=== PATIENT | female | born 1965 | race American Indian/Alaskan Native ===

== ENCOUNTER 2017-06-17 16:24 | Emergency (ER) | payer BC ==
[2017-06-17 16:52] VITALS: BP 153/99
--- NOTE | 2017-06-17 18:29 | Emergency Department Report ---
HPI - General Chief Complaint: Medical Clearance Time Seen by Provider: 06/17/17 18:27 - HPI HPI: Patient stated blood glucose was 600 at at work this morning, about 11 she took 40 units of Humalog unknown what type of Humalog. Her symptoms gradually resolved she had headache, blurry vision dizziness. She now feels better, but feels like her glucose is dropping since she hasn't eaten anything in about 4 hours. Patient also complained of sore throat for the past week. Difficulty swallowing. No wheezing, chest pain or shortness of breath. ED Past Medical Hx - Past Medical History Previous Medical History?: Yes Hx Hypertension: Yes Hx Diabetes: Yes Additional medical history: PE (still takes Coumadin) - Surgical History Past Surgical History?: No - Medications Home Medications: Home Medications Medication Instructions Recorded Confirmed Last Taken Type Azithromycin [Zithromax] 250 mg PO DAILY 5 Days #6 tablet 06/17/17 Unknown Rx ED Review of Systems ROS: Stated complaint: ELEVATED BP AND GLUCOSE Other details as noted in HPI Comment: All other systems reviewed and negative Cardiovascular: as per HPI Endocrine: increased thirst Physical Exam - Physical Exam Vital Signs: Vital Signs 06/17/17 16:45 Temperature 98.4 F Pulse Rate 90 Respiratory 16 Rate Blood Pressure 153/99 O2 Sat by Pulse 99 Oximetry Physical Exam: Gen. alert and oriented 3 in no distress Head atraumatic normocephalic Eyes PERR LA EOMI, throat: has pharyngeal erythema Chest regular rate and rhythm normal S1-S2 lungs clear bilaterally Abdomen soft nondistended Back no point tenderness paravertebral tenderness Neuro no focal deficit. Psych normal mood. ED Course Vital Signs 06/17/17 16:45 Temperature 98.4 F Pulse Rate 90 Respiratory 16 Rate Blood Pressure 153/99 O2 Sat by Pulse 99 Oximetry Critical care attestation.: If time is entered above; I have spent that time in minutes in the direct care of this critically ill patient, excluding procedure time. ED Disposition Clinical Impression: Hyperglycemia, Pharyngitis Disposition: DC-01 TO HOME OR SELFCARE Is pt being admited?: No Does the pt Need Aspirin: No Condition: Stable Instructions: Pharyngitis (ED), Diabetic Hyperglycemia (ED) Prescriptions: Azithromycin [Zithromax] 250 mg PO DAILY 5 Days #6 tablet Referrals: PRIMARY CARE, [Primary Care Provider] - 3-5 Days Forms: Work/School Release Form(ED)
== END 2017-06-17 18:37 | disposition home or self-care (01) ==
LOC: ED 16:24
DX: E11.65 Type 2 diabetes mellitus with hyperglycemia (principal); J02.9 Acute pharyngitis, unspecified; I10 Essential (primary) hypertension; Z86.711 Personal history of pulmonary embolism; Z79.01 Long term (current) use of anticoagulants
CPT/HCPCS: 82962

== ENCOUNTER 2017-06-18 14:18 | Inpatient (IN) | payer BC ==
--- NOTE | 2017-06-18 15:14 | Emergency Department Report ---
Tanisha Doc - Documentation Documentation: Vision is a 52-year-old asthmatic female who is presenting with difficulty speaking earlier this morning. Patient's states she was here yesterday and diagnosed with pharyngitis and she was having some difficulty swallowing her blood glucose and blood pressure above elevated yesterday. Patient states this morning she has started taking her antibiotics he was trying to clean up her home and acutely started having difficulty getting out words weakness in bilateral legs. The patient states her sister was asking while she was talking funny and her brother thought her right side of her face was drooped. Patient be moved to the main for a workup for TIA/stroke. NIH is below. - Assessment Assessment Interval: Baseline - Level of Consciousness 1a. Level of Consciousness: alert - LOC Questions 1b. LOC Questions: answers correctly - LOC Command 1c. LOC Commands: performs tasks correctly - Best Gaze 2. Best Gaze: normal - Visual 3. Visual: no visual loss - Facial Palsy 4. Facial Palsy: normal symmetrical movement - Motor Arm 5b. Motor Arm Right: no drift 5a. Motor Arm Left: no drift - Motor Leg 6a. Motor Leg Left: no drift 6b. Motor Leg Right: no drift - Limb Ataxia 7. Limb Ataxia: absent - Sensory 8. Sensory: normal - Best Language 9. Best Language: no aphasia - Dysarthria 10. Dysarthria: normal - Extinction and Inattention 11. Extinction/Inattention: no abnormality - Scoring Total Score: 0 Stroke Severity: No Stroke Symptoms
--- NOTE | 2017-06-18 15:59 | Cat Scan Report ---
FINAL REPORT EXAM: CT HEAD/BRAIN WO CON HISTORY: suspected TIA TECHNIQUE: CT examination of the head without IV contrast PRIORS: None. FINDINGS: No acute air-fluid level visualized in the included air-filled sinuses. Bone windows demonstrate no acute fracture. The brain is without mass, mass effect, hemorrhage, or acute infarct. There is no extra-axial intracranial bleed, brain bleed, or midline shift. The ventricles and sulci are age-appropriate. IMPRESSION: No acute CVA, intracranial bleed, or brain mass
[2017-06-18 17:29] LABS: Basophils # (Auto) 0.1 K/mm3 (0.0-0.1); Basophils % (Auto) 1.2 % (0.0-1.8); Eosinophils # (Auto) 0.2 K/mm3 (0.0-0.4); Eosinophils % (Auto) 2.3 % (0.0-4.3); Hematocrit 41.3 % (30.3-42.9); Hemoglobin 14.2 gm/dl (10.1-14.3); Lymphocytes # (Auto) 3.6 K/mm3 (1.2-5.4); Lymphocytes % (Auto) 41.7 % (13.4-35.0); Mean Corpuscular HGB Conc 34 % (30-34); Mean Corpuscular Hemoglobin 29 pg (28-32); Mean Corpuscular Volume 84 fl (79-97); Monocytes # (Auto) 0.5 K/mm3 (0.0-0.8); Platelet Count 335 K/mm3 (140-440); Red Blood Count 4.93 M/mm3 (3.65-5.03); Red Cell Distribution Width 13.2 % (13.2-15.2)
[2017-06-18 17:39] LABS: INR 0.88 (0.87-1.13); Partial Thromboplastin Time 24.1 Sec. (24.2-36.6)
[2017-06-18 17:40] LABS: Thrombin Time 17.3 Sec. (15.1-19.6)
[2017-06-18 17:55] LABS: Alanine Aminotransferase 24 units/L (7-56); BUN/Creatinine Ratio 25; Blood Urea Nitrogen 30 mg/dL (7-17); Hemolysis Index 7
[2017-06-18 17:57] LABS: Creatine Kinase MB 1.5 ng/mL (0.0-4.0)
[2017-06-18] MEDS ORDERED: ASPIRIN PO ONE (18:03)
--- NOTE | 2017-06-18 18:03 | Emergency Department Report ---
ED General Adult HPI - General Chief complaint: Dyspnea/Respdistress Stated complaint: DIFFICULTY SPEAKING Time Seen by Provider: 06/18/17 15:00 Source: patient Mode of arrival: Ambulatory Limitations: No Limitations - History of Present Illness Initial comments: Patient is a 52-year-old female past medical history of hypertension diabetes who is presenting with difficulty speaking this morning. Patient states that she was diagnosed with pharyngitis as she was having difficulty swallowing yesterday states that this morning she had a hard time formulating words and speaking her brother stated that she had a facial droop and her sister was asking why she was sounding slurred. This lasted approximately 15 minutes and then started to resolve. Patient states she is back to baseline now but was pretty concerned. Patient is denying any other symptoms. Patient denies chest pain shortness of breath fevers chills headache at this time. - Related Data Previous Rx's Medication Instructions Recorded Last Taken Type Azithromycin [Zithromax] 250 mg PO DAILY 5 Days #6 tablet 06/17/17 Unknown Rx Allergies Allergy/AdvReac Type Severity Reaction Status Date / Time No Known Allergies Allergy Unverified 06/17/17 16:49 ED Review of Systems ROS: Stated complaint: DIFFICULTY SPEAKING Other details as noted in HPI Comment: All other systems reviewed and negative ED Past Medical Hx - Past Medical History Hx Hypertension: Yes Hx Diabetes: Yes Additional medical history: PE (still takes Coumadin) - Surgical History Past Surgical History?: No - Social History Smoking Status: Former Smoker Substance Use Type: None - Medications Home Medications: Home Medications Medication Instructions Recorded Confirmed Last Taken Type Azithromycin [Zithromax] 250 mg PO DAILY 5 Days #6 tablet 06/17/17 Unknown Rx ED Physical Exam - General Limitations: No Limitations General appearance: alert, in no apparent distress - Head Head exam: Present: atraumatic, normocephalic - Eye Eye exam: Present: normal appearance - ENT ENT exam: Present: mucous membranes moist - Neck Neck exam: Present: normal inspection - Respiratory Respiratory exam: Present: normal lung sounds bilaterally. Absent: respiratory distress - Cardiovascular Cardiovascular Exam: Present: regular rate, normal rhythm. Absent: systolic murmur, diastolic murmur, rubs, gallop - GI/Abdominal GI/Abdominal exam: Present: soft, normal bowel sounds - Extremities Exam Extremities exam: Present: normal inspection - Back Exam Back exam: Present: normal inspection - Neurological Exam Neurological exam: Present: alert, oriented X3 - Psychiatric Psychiatric exam: Present: normal affect, normal mood - Skin Skin exam: Present: warm, dry, intact, normal color. Absent: rash ED Course Vital Signs 06/18/17 14:22 Temperature 98.1 F Pulse Rate 100 H Respiratory 16 Rate Blood Pressure 140/91 O2 Sat by Pulse 99 Oximetry ED Medical Decision Making - Lab Data Result diagrams: 06/18/17 17:23 06/18/17 17:23 - Radiology Data Radiology results: report reviewed No acute process - Medical Decision Making Patient will be admitted to Dr. Christie with the hospitalist service for continued care. Patient will be worked up for TIA. Please see NIH scale score on the blanket during my screening Critical care attestation.: If time is entered above; I have spent that time in minutes in the direct care of this critically ill patient, excluding procedure time. ED Disposition Clinical Impression: TIA (transient ischemic attack) Disposition: DC-09 OP ADMIT IP TO THIS HOSP Is pt being admited?: Yes Does the pt Need Aspirin: No Condition: Stable Referrals: PRIMARY CARE, [Primary Care Provider] - 3-5 Days
--- NOTE | 2017-06-18 18:19 | History and Physical Report ---
History of Present Illness Chief complaint: I could not talk, and my face was twisted History of present illness: 52 YO Female with HTN, DM, History of PE presents to ED for evaluation. Pt states that she was in her usual state of health at bedtime last night which was around 2100 hrs, but awoke this morning and experienced difficulty speaking , and also had a hard time formulating words and speaking full sentences. Patient brother stated that she had a facial droop. Pt states that symptoms improved after 15 minutes. Pt denies fever, chills, CP, Palpitations, Syncope, shortness of breath, productive cough, BRBPR, Vertigo, Seizures, loss of bowel/ bladder continence, trauma, or recent ill contacts. Pt seen and evaluated in ED and found to be outside therapeutic window for TPA. Pt admitted to telemetry and treated IA stroke protocol. Past History Past Medical History: diabetes, hypertension, pulmonary embolism Past Surgical History: No surgical history, Other (reviewed) Social history: , lives with family. denies: smoking, alcohol abuse, prescription drug abuse Family history: hypertension Medications and Allergies Allergies Allergy/AdvReac Type Severity Reaction Status Date / Time No Known Allergies Allergy Unverified 06/17/17 16:49 Home Medications Medication Instructions Recorded Confirmed Last Taken Type Azithromycin [Zithromax] 250 mg PO DAILY 5 Days #6 tablet 06/17/17 06/18/17 Rx Liraglutide [Victoza 2-Bladimir] 0.6 mg SQ DAILY 06/18/17 06/18/17 Unknown History Lisinopril [Prinivil] 5 mg PO DAILY 06/18/17 06/18/17 Unknown History Metoprolol Succinate 50 mg PO DAILY 06/18/17 06/18/17 Unknown History NIFEdipine [Nifedipine ER] 60 mg PO QPM 06/18/17 06/18/17 Unknown History Valsartan/Hydrochlorothiazide 1 each PO BID 06/18/17 06/18/17 Unknown History [Valsartan-Hctz 160-12.5 mg Tab] Warfarin [Coumadin] 10 mg PO QHS 06/18/17 06/18/17 Unknown History glipiZIDE [Glipizide] 10 mg PO BID 06/18/17 06/18/17 Unknown History Review of Systems Constitutional: no weight loss, no weight gain, no fever, no chills Ears, nose, mouth and throat: no ear pain, no ear discharge, no tinnitis, no decreased hearing, no nose pain Breasts: no change in shape, no swelling, no mass Cardiovascular: no chest pain, no orthopnea, no palpitations, no rapid/ irregular heart beat, no edema, no syncope Respiratory: no cough, no cough with sputum, no excessive sputum, no hemoptysis , no shortness of breath Gastrointestinal: no nausea, no vomiting, no diarrhea Genitourinary Female: no dysmenorrhea, no pelvic pain, no flank pain, no menorrhagia, no dysuria Musculoskeletal: no neck stiffness, no neck pain, no shooting arm pain, no arm numbness/tingling, no low back pain Integumentary: no rash, no pruritis, no redness, no sores, no wounds, no jaundice Neurological: weakness, change in speech, no tingling, no seizures, no syncope, no tremors Psychiatric: no anxiety, no memory loss, no change in sleep habits, no sleep disturbances, no insomnia, no hypersomnia, no change in appetite Endocrine: no cold intolerance, no heat intolerance, no polyphagia, no excessive thirst, no polydipsia, no polyuria, no nocturia Hematologic/Lymphatic: no easy bruising, no easy bleeding, no lymphadenopathy, no lymphedema Allergic/Immunologic: no urticaria, no allergic rhinitis, no wheezing, no persistent infections, no anaphylaxis Exam - Constitutional Vitals: Temp Pulse Resp BP Pulse Ox 98.1 F 100 H 16 140/91 99 06/18/17 14:22 06/18/17 14:22 06/18/17 14:22 06/18/17 14:22 06/18/17 14:22 General appearance: Present: no acute distress - EENT Eyes: Present: PERRL ENT: hearing intact, clear oral mucosa - Neck Neck: Present: supple, normal ROM - Respiratory Respiratory effort: normal Respiratory: bilateral: CTA - Cardiovascular Heart Sounds: Present: S1 & S2. Absent: rub, click - Extremities Extremities: pulses symmetrical, No edema Peripheral Pulses: within normal limits - Abdominal General gastrointestinal: Present: soft, non-tender, non-distended, normal bowel sounds Female genitourinary: Present: normal - Integumentary Integumentary: Present: clear, warm, dry - Musculoskeletal Musculoskeletal: gait normal, strength equal bilaterally - Psychiatric Psychiatric: appropriate mood/affect, intact judgment & insight - Neurologic Neurologic: CNII-XII intact, moves all extremities Results - Labs CBC & Chem 7: 06/18/17 17:23 06/18/17 17:23 Labs: Abnormal lab results 06/18/17 06/18/17 06/18/17 Range/Units 14:29 17:23 17:23 Lymph % (Auto) 41.7 H (13.4-35.0) % APTT 24.1 L (24.2-36.6) Sec. BUN (7-17) mg/dL POC Glucose 116 H (70-105) Alkaline Phosphatase (35-129) units/L 06/18/17 Range/Units 17:23 Lymph % (Auto) (13.4-35.0) % APTT (24.2-36.6) Sec. BUN 30 H (7-17) mg/dL POC Glucose (70-105) Alkaline Phosphatase 132 H (35-129) units/L Assessment and Plan - Patient Problems (1) CVA (cerebral vascular accident) Current Visit: Yes Status: Suspected Qualifiers: CVA mechanism: unspecified Qualified Code(s): I63.9 - Cerebral infarction, unspecified Plan to address problem: Stroke Protocol: CT head, MRI Brain, MRA Brain, Echo, Carotid Doppler, PT/PT/ speech Therapy, antiplatelet therapy (2) Diabetes Current Visit: Yes Status: Acute Plan to address problem: ADA diet, insulin, accu check (3) HTN (hypertension) Current Visit: Yes Status: Acute Qualifiers: Hypertension type: essential hypertension Qualified Code(s): I10 - Essential (primary) hypertension Plan to address problem: monitor bp q shift. (4) Pulmonary embolism Current Visit: Yes Status: Acute Qualifiers: Chronicity: chronic Plan to address problem: Resume home anticoagulation, therapeutic lovenox until INR therapeutic. (5) DVT prophylaxis Current Visit: Yes Status: Acute
[2017-06-18] MEDS ORDERED: SODIUM CHLORIDE FLUSH SYRINGE 10 ML IV PRN (18:20)
[2017-06-18] MEDS ORDERED: ZOFRAN IV PRN (18:20)
[2017-06-18] MEDS ORDERED: PROVENTIL IH PRN (18:20)
[2017-06-18 19:01] LABS: Amphetamine Screen,Urine PRESUMPTIVE NEGATIVE; Benzodiazepines Screen,Urine PRESUMPTIVE NEGATIVE; Cannabinoid Screen,Urine PRESUMPTIVE NEGATIVE; Cocaine Screen,Urine PRESUMPTIVE NEGATIVE; Methadone Screen,Urine PRESUMPTIVE NEGATIVE; Opiate Screen,Urine PRESUMPTIVE NEGATIVE
[2017-06-18] MEDS ORDERED: LOVENOX SUB-Q ONE (21:43)
[2017-06-18] MEDS ORDERED: COUMADIN PO SCH (22:00)
[2017-06-18] MEDS ORDERED: LOVENOX SUB-Q SCH (22:00)
[2017-06-18] MEDS: COUMADIN PO SCH ×2 (22:50)
[2017-06-18] MEDS: LOVENOX SUB-Q SCH (22:50)
[2017-06-19 06:36] LABS: Chol/HDL Ratio 7.83 %; HDL Cholesterol 31 mg/dL (40-59); LDL Cholesterol,Direct TNR mg/dL (50-130)
[2017-06-19 07:10] LABS: INR 0.98 (0.87-1.13)
--- NOTE | 2017-06-19 09:38 | Progress Note ---
<DINO FENG - Last Filed: 06/19/17 15:18> Assessment and Plan Assessment and plan: 52 YO Female with HTN, DM, History of PE presents to ED for evaluation. Pt states that she was in her usual state of health at bedtime last night which was around 2100 hrs, but awoke this morning and experienced difficulty speaking , and also had a hard time formulating words and speaking full sentences. Patient brother stated that she had a facial droop. Pt states that symptoms improved after 15 minutes. Pt denies fever, chills, CP, Palpitations, Syncope, shortness of breath, productive cough, BRBPR, Vertigo, Seizures, loss of bowel/ bladder continence, trauma, or recent ill contacts. Pt seen and evaluated in ED and found to be outside therapeutic window for TPA. Pt admitted to telemetry and treated IAW stroke protocol. CVA (cerebral vascular accident) MRI Brain, MRA Brain, Echo, Carotid Doppler, PT/OT/ speech Therapy, antiplatelet therapy CT head No acute CVA, intracranial bleed, or brain mass Neurology consult ordered Diabetes ADA diet, SSI insulin, accu check ACHS HTN (hypertension) monitor bp frequently Pulmonary embolism Resume home anticoagulation, therapeutic lovenox until INR therapeutic. Hyperlipidemia Initiate statin therapy DVT prophylaxis Lovenox History Interval history: Patient seen and examined. No new events overnight. Labs and nursing notes reviewed Hospitalist Physical - Constitutional Vitals: Temp Pulse Resp BP Pulse Ox 98.3 F 90 20 137/84 99 06/19/17 08:16 06/19/17 08:16 06/19/17 08:16 06/19/17 08:16 06/19/17 08:16 General appearance: Present: no acute distress, well-nourished - EENT Eyes: Present: PERRL, EOM intact ENT: hearing intact, clear oral mucosa - Neck Neck: Present: supple, normal ROM - Respiratory Respiratory effort: normal Respiratory: bilateral: CTA - Cardiovascular Rhythm: regular Heart Sounds: Present: S1 & S2 - Extremities Extremities: no ischemia, No edema - Abdominal General gastrointestinal: soft, non-tender, non-distended - Integumentary Integumentary: Present: clear, warm, dry - Psychiatric Psychiatric: appropriate mood/affect, intact judgment & insight - Neurologic Neurologic: CNII-XII intact, moves all extremities - Allied Health Allied health notes reviewed: nursing Results - Labs CBC & Chem 7: 06/18/17 17:23 06/18/17 17:23 Labs: Laboratory Last Values WBC 8.6 K/mm3 (4.5-11.0) 06/18/17 17: RBC 4.93 M/mm3 (3.65-5.03) 06/18/17 17:23 Hgb 14.2 gm/dl (10.1-14.3) 06/18/17 17: Hct 41.3 % (30.3-42.9) 06/18/17 17:23 MCV 84 fl (79-97) 06/18/17 17: MCH 29 pg (28-32) 06/18/17 17: MCHC 34 % (30-34) 06/18/17 17: RDW 13.2 % (13.2-15.2) 06/18/17 17: Plt Count 335 K/mm3 (140-440) 06/18/17 17:23 Lymph % (Auto) 41.7 % (13.4-35.0) H 06/18/17 17:23 Ashe % (Auto) 6.0 % (0.0-7.3) 06/18/17 17: Eos % (Auto) 2.3 % (0.0-4.3) 06/18/17 17: Baso % (Auto) 1.2 % (0.0-1.8) 06/18/17 17:23 Lymph # 3.6 K/mm3 (1.2-5.4) 06/18/17 17:23 Ashe # 0.5 K/mm3 (0.0-0.8) 06/18/17 17:23 Eos # 0.2 K/mm3 (0.0-0.4) 06/18/17 17: Baso # 0.1 K/mm3 (0.0-0.1) 06/18/17 17: Seg Neutrophils % 48.8 % (40.0-70.0) 06/18/17 17: Seg Neutrophils # 4.2 K/mm3 (1.8-7.7) 06/18/17 17: PT 13.5 Sec. (12.2-14.9) 06/19/17 05:44 INR 0.98 (0.87-1.13) 06/19/17 05:44 APTT 24.1 Sec. (24.2-36.6) L 06/18/17 17:23 Thrombin Time 17.3 Sec. (15.1-19.6) 06/18/17 17:23 Sodium 140 mmol/L (137-145) 06/18/17 17:23 Potassium 4.3 mmol/L (3.6-5.0) 06/18/17 17:23 Chloride 99.2 mmol/L (98-107) 06/18/17 17:23 Carbon Dioxide 27 mmol/L (22-30) 06/18/17 17:23 Anion Gap 18 mmol/L 06/18/17 17:23 BUN 30 mg/dL (7-17) H 06/18/17 17:23 Creatinine 1.2 mg/dL (0.7-1.2) 06/18/17 17:23 Estimated GFR 57 ml/min 06/18/17 17:23 BUN/Creatinine Ratio 25 % 06/18/17 17:23 Glucose 88 mg/dL (65-100) 06/18/17 17:23 POC Glucose 116 (70-105) H 06/18/17 14:29 Calcium 10.0 mg/dL (8.4-10.2) 06/18/17 17:23 Total Bilirubin < 0.20 mg/dL (0.1-1.2) 06/18/17 17:23 AST 19 units/L (5-40) 06/18/17 17:23 ALT 24 units/L (7-56) 06/18/17 17:23 Alkaline Phosphatase 132 units/L (35-129) H 06/18/17 17:23 Total Creatine Kinase 110 units/L (30-135) 06/18/17 17:23 CK-MB (CK-2) 1.5 ng/mL (0.0-4.0) 06/18/17 17:23 CK-MB (CK-2) Rel Index 1.3 (0-4) 06/18/17 17:23 Troponin T < 0.010 ng/mL (0.00-0.029) 06/18/17 17:23 Total Protein 7.9 g/dL (6.3-8.2) 06/18/17 17:23 Albumin 4.0 g/dL (3.9-5) 06/18/17 17:23 Albumin/Globulin Ratio 1.0 % 06/18/17 17:23 Triglycerides 602 mg/dL (2-149) H 06/19/17 05:44 Cholesterol 243 mg/dL (50-199) H 06/19/17 05:44 LDL Cholesterol Direct TNR 06/19/17 05:44 HDL Cholesterol 31 mg/dL (40-59) L 06/19/17 05:44 Cholesterol/HDL Ratio 7.83 % 06/19/17 05:44 Urine Opiates Screen Presumptive negative 06/18/17 18:45 Urine Methadone Screen Presumptive negative 06/18/17 18:45 Ur Barbiturates Screen Presumptive negative 06/18/17 18:45 Ur Phencyclidine Scrn Presumptive negative 06/18/17 18:45 Ur Amphetamines Screen Presumptive negative 06/18/17 18:45 U Benzodiazepines Scrn Presumptive negative 06/18/17 18:45 Urine Cocaine Screen Presumptive negative 06/18/17 18:45 U Marijuana (THC) Screen Presumptive negative 06/18/17 18:45 Drugs of Abuse Note Disclamer 06/18/17 18:45 <EDUARDO FERNANDEZ R - Last Filed: 06/19/17 16:05> Assessment and Plan Assessment and plan: I saw and evaluated the patient. I agree with the findings and the plan of care as documented in the Nurse Practitioner's~note, with the following corrections and additions. patient was not compliant with her coumadin. MRI showed rt pontine acute CVA. Add high intensity statin. Hospitalist Physical - Constitutional Vitals: Temp Pulse Resp BP Pulse Ox 97.2 F L 88 20 139/91 98 06/19/17 13:01 06/19/17 13:01 06/19/17 13:01 06/19/17 13:01 06/19/17 13:01 Results - Labs CBC & Chem 7: 06/18/17 17:23 06/18/17 17:23 Labs: Laboratory Last Values WBC 8.6 K/mm3 (4.5-11.0) 06/18/17 17: RBC 4.93 M/mm3 (3.65-5.03) 06/18/17 17:23 Hgb 14.2 gm/dl (10.1-14.3) 06/18/17 17: Hct 41.3 % (30.3-42.9) 06/18/17 17: MCV 84 fl (79-97) 06/18/17 17: MCH 29 pg (28-32) 06/18/17 17: MCHC 34 % (30-34) 06/18/17 17: RDW 13.2 % (13.2-15.2) 06/18/17 17: Plt Count 335 K/mm3 (140-440) 06/18/17 17: Lymph % (Auto) 41.7 % (13.4-35.0) H 06/18/17 17: Ashe % (Auto) 6.0 % (0.0-7.3) 06/18/17 17: Eos % (Auto) 2.3 % (0.0-4.3) 06/18/17 17: Baso % (Auto) 1.2 % (0.0-1.8) 06/18/17 17: Lymph # 3.6 K/mm3 (1.2-5.4) 06/18/17 17: Ashe # 0.5 K/mm3 (0.0-0.8) 06/18/17 17: Eos # 0.2 K/mm3 (0.0-0.4) 06/18/17 17: Baso # 0.1 K/mm3 (0.0-0.1) 06/18/17 17: Seg Neutrophils % 48.8 % (40.0-70.0) 06/18/17: Seg Neutrophils # 4.2 K/mm3 (1.8-7.7) 06/18/17 17: PT 13.5 Sec. (12.2-14.9) 06/19/17 05:44 INR 0.98 (0.87-1.13) 06/19/17 05:44 APTT 24.1 Sec. (24.2-36.6) L 06/18/17 17: Thrombin Time 17.3 Sec. (15.1-19.6) 06/18/17 17: Sodium 140 mmol/L (137-145) 06/18/17 17:23 Potassium 4.3 mmol/L (3.6-5.0) 06/18/17 17:23 Chloride 99.2 mmol/L (98-107) 06/18/17 17:23 Carbon Dioxide 27 mmol/L (22-30) 06/18/17 17:23 Anion Gap 18 mmol/L 06/18/17 17:23 BUN 30 mg/dL (7-17) H 06/18/17 17:23 Creatinine 1.2 mg/dL (0.7-1.2) 06/18/17 17:23 Estimated GFR 57 ml/min 06/18/17 17:23 BUN/Creatinine Ratio 25 % 06/18/17 17:23 Glucose 88 mg/dL (65-100) 06/18/17 17:23 POC Glucose 116 (70-105) H 06/18/17 14:29 Hemoglobin A1c 15.9 % (4-6) H 06/18/17 22:37 Calcium 10.0 mg/dL (8.4-10.2) 06/18/17 17:23 Total Bilirubin < 0.20 mg/dL (0.1-1.2) 06/18/17 17:23 AST 19 units/L (5-40) 06/18/17 17:23 ALT 24 units/L (7-56) 06/18/17 17:23 Alkaline Phosphatase 132 units/L (35-129) H 06/18/17 17:23 Total Creatine Kinase 110 units/L (30-135) 06/18/17 17:23 CK-MB (CK-2) 1.5 ng/mL (0.0-4.0) 06/18/17 17:23 CK-MB (CK-2) Rel Index 1.3 (0-4) 06/18/17 17:23 Troponin T < 0.010 ng/mL (0.00-0.029) 06/18/17 17:23 Total Protein 7.9 g/dL (6.3-8.2) 06/18/17 17:23 Albumin 4.0 g/dL (3.9-5) 06/18/17 17:23 Albumin/Globulin Ratio 1.0 % 06/18/17 17:23 Triglycerides 602 mg/dL (2-149) H 06/19/17 05:44 Cholesterol 243 mg/dL (50-199) H 06/19/17 05:44 LDL Cholesterol Direct TNR 06/19/17 05:44 HDL Cholesterol 31 mg/dL (40-59) L 06/19/17 05:44 Cholesterol/HDL Ratio 7.83 % 06/19/17 05:44 Vitamin B12 862.5 pg/mL (211-911) 06/19/17 12:53 TSH 1.030 mlU/mL (0.270-4.200) 06/19/17 12:53 Free T4 1.08 ng/dL (0.76-1.46) 06/19/17 12:53 Urine Opiates Screen Presumptive negative 06/18/17 18:45 Urine Methadone Screen Presumptive negative 06/18/17 18:45 Ur Barbiturates Screen Presumptive negative 06/18/17 18:45 Ur Phencyclidine Scrn Presumptive negative 06/18/17 18:45 Ur Amphetamines Screen Presumptive negative 06/18/17 18:45 U Benzodiazepines Scrn Presumptive negative 06/18/17 18:45 Urine Cocaine Screen Presumptive negative 06/18/17 18:45 U Marijuana (THC) Screen Presumptive negative 06/18/17 18:45 Drugs of Abuse Note Disclamer 06/18/17 18:45
[2017-06-19] MEDS ORDERED: D50W (25GM) Syringe IV PRN (09:42)
--- NOTE | 2017-06-19 11:13 | Magnetic Resonance Report ---
MRI BRAIN WITHOUT CONTRAST INDICATION: Stroke. COMPARISON: Head CT from yesterday. FINDINGS: Noncontrast multiplanar and multisequence MRI of the brain demonstrates approximately 8mm restricted diffusion focus in the chace inferiorly on the right, series 4, image 13. Questionable subtle PRES-like appearance on the diffusion though not confirmed on the FLAIR or T2-weighted imaging. Approximately 5 mm nonspecific FLAIR and T2 hyperintense right paramidline focus possibly along the superior frontal gyrus, axial image 21, series 7. Otherwise normal symmetric ventricles and sulci without acute hemorrhage, mass effect or midline shift. No abnormal extra axial masses or fluid collections. Normal major intracranial vascular flow voids. Normal remainder posterior fossa with preserved basilar cisterns and symmetric seventh and eighth nerve complexes. Normal eye globes. Clear paranasal sinuses and mastoid air cells. Normal midline structures without evidence of Chiari malformation. CONCLUSION: Approximately 8 mm nonhemorrhagic right pontine acute infarct, as described. Please correlate. Thank you for the opportunity to participate in this patient's care.
--- NOTE | 2017-06-19 11:17 | Magnetic Resonance Report ---
MRA HEAD WITHOUT CONTRAST INDICATION: Stroke. COMPARISON: None similar. FINDINGS: MRA of the head performed without intravenous contrast and demonstrates no evidence of flow-limiting stenosis, occlusion or vascular malformation. Please note that detection of aneurysms less than 5 mm is limited on this exam. 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 A small right PCOM identified while the left PCOM not clearly visualized. CONCLUSION: Normal study of the [place]. Thank you for the opportunity to participate in this patient's care.
[2017-06-19] MEDS ORDERED: NOVOLOG SUB-Q SCH (11:30)
[2017-06-19] MEDS: LOVENOX SUB-Q SCH ×2 (13:30→22:14)
[2017-06-19] MEDS: NOVOLOG SUB-Q SCH ×3 (13:31→22:15)
--- NOTE | 2017-06-19 14:05 | Consultation ---
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 The symptoms improved, but have not totally resolved. She noted these symptoms while trying to clean her house yesterday evening. Her sister noted the change in speech and facial droop. She denied chest pain, palpitations, diaphoresis, nausea, diplopia, headache. She did note occipital discomfort and also extreme sweating the night before which is different for her. She notes difficulty keeping up with all of her medicines, as well as her diabetic care. MRI scan reveals acute stroke in rt. chace. Echocardiogram shows EF of 55 to 60% Past History Past Medical History: diabetes, hypertension, pulmonary embolism Past Surgical History: No surgical history Social history: , lives with family. denies: smoking, alcohol abuse, prescription drug abuse Family history: diabetes (parents had hypertension, one sister with diabetes and hypertension, son with juvenile RA.), hypertension Medications and Allergies Allergies Allergy/AdvReac Type Severity Reaction Status Date / Time No Known Allergies Allergy Unverified 06/17/17 16:49 Home Medications Medication Instructions Recorded Confirmed Last Taken Type Azithromycin [Zithromax] 250 mg PO DAILY 5 Days #6 tablet 06/17/17 06/18/17 Rx Liraglutide [Victoza 2-Bladimir] 0.6 mg SQ DAILY 06/18/17 06/18/17 Unknown History Lisinopril [Prinivil] 5 mg PO DAILY 06/18/17 06/18/17 Unknown History Metoprolol Succinate 50 mg PO DAILY 06/18/17 06/18/17 Unknown History NIFEdipine [Nifedipine ER] 60 mg PO QPM 06/18/17 06/18/17 Unknown History Valsartan/Hydrochlorothiazide 1 each PO BID 06/18/17 06/18/17 Unknown History [Valsartan-Hctz 160-12.5 mg Tab] Warfarin [Coumadin] 10 mg PO QHS 06/18/17 06/18/17 Unknown History glipiZIDE [Glipizide] 10 mg PO BID 06/18/17 06/18/17 Unknown History Active Meds: Active Medications Acetaminophen (Tylenol) 650 mg PO Q4H PRN PRN Reason: Pain, Mild (1-3) Albuterol (Proventil) 2.5 mg IH Q3HRT PRN PRN Reason: Shortness Of Breath Dextrose (D50w (25gm) Syringe) 50 ml IV PRN PRN PRN Reason: Hypoglycemia Enoxaparin Sodium (Lovenox) 80 mg SUB-Q Q12HR [facility] Last Admin: 06/19/17 13:30 Dose: 80 mg Insulin Aspart (Novolog) 0 units SUB-Q ACHS [facility] PRN Reason: Protocol Last Admin: 06/19/17 13:31 Dose: 5 units Ondansetron HCl (Zofran) 4 mg IV Q8H PRN PRN Reason: N/V unrelieved by Reghumberto Pravastatin Sodium (Pravachol) 40 mg PO QHS [facility] Sodium Chloride (Sodium Chloride Flush Syringe 10 Ml) 10 ml IV PRN PRN PRN Reason: LINE FLUSH Warfarin Sodium (Coumadin) 2.5 mg PO DAILY@1700 [facility] Last Admin: 06/18/17 22:50 Dose: 2.5 mg Warfarin Sodium (Coumadin) 10 mg PO DAILY@1700 [facility] Last Admin: 06/18/17 22:50 Dose: 10 mg Review of Systems Constitutional: night sweats, weakness, other (insomnia), no fever, no chills, no fatigue, no chronic headaches Ears, nose, mouth and throat: no ear pain, no tinnitis, no decreased hearing, no nasal congestion, no nasal discharge, no dysphagia, no vertigo Cardiovascular: no chest pain, no orthopnea, no palpitations, no rapid/ irregular heart beat, no edema, no syncope, no lightheadedness, no shortness of breath, no dyspnea on exertion Respiratory: no cough, no shortness of breath, no dyspnea on exertion, no congestion, no sleep apnea Gastrointestinal: no abdominal pain, no nausea, no vomiting, no diarrhea, no constipation, no change in bowel habits Genitourinary Female: urinary frequency, urgency, stress incontinence, urge incontinence, no dysuria Musculoskeletal: no neck stiffness, no neck pain, no arm numbness/tingling, no low back pain, no leg numbness/tingling Integumentary: no rash, no pruritis Neurological: weakness, change in speech, no parathesias, no numbness, no tingling, no seizures, no syncope, no vertigo, no headaches, no confusion, no memory loss Physical Examination - Vital Signs Vital Signs: Vital Signs Temp Pulse Resp BP Pulse Ox 98.1 F 100 H 16 140/91 99 06/18/17 14:22 06/18/17 14:22 06/18/17 14:22 06/18/17 14:22 06/18/17 14:22 - Constitutional General appearance: comfortable - EENT EENT: Present: PERRL, mucous membranes moist, hearing intact, vision intact - Respiratory Respiratory: Present: lungs clear, normal breath sounds, no respiratory distress - Cardiovascular Cardiovascular: Present: regular rate, normal S1, normal S2, no murmurs Extremities: Present: no peripheral edema bilatateraly, no clubbing, cyanosis, no inflammation, no ischemia or petechiae - Gastrointestinal Gastrointestinal: Present: normoactive bowel sounds, soft, non-tender - Integumentary Integumentary: Present: normal - Neurologic Cranial nerve examination: PERRL, EOMI, V1/V2/V3 grossly intact, face symmetric , tongue midline, intact shoulder shrug Speech examination: intact, other (mild slurring) Motor examination - right side: 5/5: biceps, triceps, wrist flexion, wrist extension, hip flexors, knee extensors, dorsiflexion, toe extension (EHL), plantarflexion Motor examination - left side: 4/5: wrist flexion, wrist extension, 5/5: biceps , triceps, hip flexors, knee extensors, dorsiflexion, toe extension (EHL), plantarflexion Detailed sensory examination: intact, light touch, pain Reflex and gait examination: normal gait Reflexes: 2+: ankle, bicep, tricep, 3+: knee - Musculoskeletal Musculoskeletal: Present: normal range of motion - Psychiatric Psychiatric: Present: mood/affect appropriate Results - Laboratory Findings CBC and BMP: 06/18/17 17:23 06/18/17 17:23 Abnormal Lab Findings: Abnormal Labs 06/18/17 06/18/17 06/18/17 14:29 17:23 17:23 Lymph % (Auto) 41.7 H APTT 24.1 L BUN POC Glucose 116 H Hemoglobin A1c Alkaline Phosphatase Triglycerides Cholesterol HDL Cholesterol 06/18/17 06/18/17 06/19/17 17:23 22:37 05:44 Lymph % (Auto) APTT BUN 30 H POC Glucose Hemoglobin A1c 15.9 H Alkaline Phosphatase 132 H Triglycerides 602 H Cholesterol 243 H HDL Cholesterol 31 L MRI brain reveals rt. pontine acute stroke on diffusion weighted images. Echo with 55 to 60% EF Assessment and Plan 52 year old female with hypertension difficult to control and diabetes, presents with acute pontine stroke. Was supposed to be taking Coumadin but INR is < 1.0. On Coumadin for previous PE. Echocardiogram revels 55 to 60% EF. Recommend - needs tighter BP control. Would maintain Coumadin for now Consult to Dr. Escalera, her mechanic driver. Continue statin therapy.
[2017-06-19 14:07] LABS: Free T4 (Free Thyroxine) 1.08 ng/dL (0.76-1.46)
[2017-06-19] MEDS: COUMADIN PO SCH ×2 (18:12)
[2017-06-19] MEDS ORDERED: PRAVACHOL PO SCH (22:00)
[2017-06-20 07:01] LABS: INR 1.07 (0.87-1.13)
[2017-06-20] MEDS: NOVOLOG SUB-Q SCH ×4 (08:15→23:01)
[2017-06-20] MEDS: LOVENOX SUB-Q SCH ×2 (11:15→21:22)
--- NOTE | 2017-06-20 14:27 | Progress Note ---
Assessment and Plan // CVA (cerebral vascular accident) MRI Brain, MRA Brain, Echo, Carotid Doppler, PT/OT/ speech Therapy, antiplatelet therapy CT head No acute CVA, intracranial bleed, or brain mass MRI brain showed rt pontine cva Neurology consult ordered //Diabetes ADA diet, SSI insulin, accu check ACHS start on home dose of victoza A1c 15.7 //HTN (hypertension) monitor bp frequently //Pulmonary embolism Resumed home anticoagulation, therapeutic lovenox until INR therapeutic. //Hyperlipidemia Initiate statin therapy //DVT prophylaxis Lovenox Brief History: 52 YO Female with HTN, DM, History of PE presents to ED for evaluation. Pt states that she was in her usual state of health at bedtime last night which was around 2100 hrs, but awoke this morning and experienced difficulty speaking , and also had a hard time formulating words and speaking full sentences. Patient brother stated that she had a facial droop. Pt states that symptoms improved after 15 minutes. Pt denies fever, chills, CP, Palpitations, Syncope, shortness of breath, productive cough, BRBPR, Vertigo, Seizures, loss of bowel/ bladder continence, trauma, or recent ill contacts. Pt seen and evaluated in ED and found to be outside therapeutic window for TPA. Pt admitted to telemetry and treated IAW stroke protocol. Hospitalist Physical General appearance: Present: no acute distress, well-nourished - EENT Eyes: Present: PERRL, EOM intact ENT: hearing intact, clear oral mucosa - Neck Neck: Present: supple, normal ROM - Respiratory Respiratory effort: normal Respiratory: bilateral: CTA - Cardiovascular Rhythm: regular Heart Sounds: Present: S1 & S2 - Extremities Extremities: no ischemia, No edema - Abdominal General gastrointestinal: soft, non-tender, non-distended - Integumentary Integumentary: Present: clear, warm, dry - Psychiatric Psychiatric: appropriate mood/affect, intact judgment & insight - Neurologic Neurologic: CNII-XII intact, moves all extremities - Allied Health Allied health notes reviewed: nursing Subjective Date of service: 06/20/17 Interval history: Patient seen and examined. No new events overnight. Labs and nursing notes reviewed concerned about elevated BG Objective - Constitutional Vitals: Vital Signs - 12hr 06/20/17 06/20/17 06/20/17 04:18 09:27 10:00 Temperature 98.8 F 97.9 F Pulse Rate 83 86 Respiratory 16 18 Rate Blood Pressure 145/78 Blood Pressure 146/93 [Right] O2 Sat by Pulse 100 99 99 Oximetry 06/20/17 12:08 Temperature 97.8 F Pulse Rate 89 Respiratory 18 Rate Blood Pressure 154/97 Blood Pressure [Right] O2 Sat by Pulse 99 Oximetry - Labs CBC & Chem 7: 06/18/17 17:23 06/18/17 17:23 Labs: Abnormal lab results 06/19/17 06/19/17 06/19/17 Range/Units 13:05 16:41 21:18 POC Glucose 393 H 436 H 221 H (70-105) 06/20/17 06/20/17 06/20/17 Range/Units 05:24 08:18 12:15 POC Glucose 222 H 304 H 311 H (70-105)
[2017-06-20] MEDS: COUMADIN PO SCH ×2 (18:20→18:21)
[2017-06-20] MEDS: TYLENOL PO PRN (21:24)
[2017-06-21 06:50] LABS: INR 1.19 (0.87-1.13)
[2017-06-21] MEDS ORDERED: LIRAGLUTIDE 0.6 MG SQ SCH (10:00)
[2017-06-21] MEDS: NOVOLOG SUB-Q SCH ×4 (10:45→22:42)
[2017-06-21] MEDS: LOVENOX SUB-Q SCH ×2 (10:46→22:21)
[2017-06-21] MEDS: ZESTRIL PO SCH (10:54)
[2017-06-21] MEDS: TOPROL XL PO SCH (10:54)
[2017-06-21] MEDS: GLUCOTROL PO SCH ×2 (10:56→22:28)
[2017-06-21] MEDS: ZITHROMAX PO SCH (11:28)
--- NOTE | 2017-06-21 14:22 | Progress Note ---
Assessment and Plan // CVA (cerebral vascular accident) MRI Brain, MRA Brain, Echo, Carotid Doppler, PT/OT/ speech Therapy, antiplatelet therapy CT head No acute CVA, intracranial bleed, or brain mass MRI brain showed rt pontine cva, preserved EF on 2d echo Neurology consult ordered //Diabetes ADA diet, SSI insulin, accu check ACHS started on home dose of victoza A1c 15.7, will also cont on detemir 10 unit subcu will adjust medication as needed //HTN (hypertension) monitor bp frequently //Pulmonary embolism Resumed home anticoagulation, therapeutic lovenox until INR therapeutic. //Hyperlipidemia Initiate statin therapy //DVT prophylaxis Lovenox Brief History: 52 YO Female with HTN, DM, History of PE presents to ED for evaluation. Pt states that she was in her usual state of health at bedtime last night which was around 2100 hrs, but awoke this morning and experienced difficulty speaking , and also had a hard time formulating words and speaking full sentences. Patient brother stated that she had a facial droop. Pt states that symptoms improved after 15 minutes. Pt denies fever, chills, CP, Palpitations, Syncope, shortness of breath, productive cough, BRBPR, Vertigo, Seizures, loss of bowel/ bladder continence, trauma, or recent ill contacts. Pt seen and evaluated in ED and found to be outside therapeutic window for TPA. Pt admitted to telemetry and treated IA stroke protocol. Hospitalist Physical General appearance: Present: no acute distress, well-nourished - EENT Eyes: Present: PERRL, EOM intact ENT: hearing intact, clear oral mucosa - Neck Neck: Present: supple, normal ROM - Respiratory Respiratory effort: normal Respiratory: bilateral: CTA - Cardiovascular Rhythm: regular Heart Sounds: Present: S1 & S2 - Extremities Extremities: no ischemia, No edema - Abdominal General gastrointestinal: soft, non-tender, non-distended - Integumentary Integumentary: Present: clear, warm, dry - Psychiatric Psychiatric: appropriate mood/affect, intact judgment & insight - Neurologic Neurologic: CNII-XII intact, moves all extremities - Allied Health Allied health notes reviewed: nursing Subjective Date of service: 06/21/17 Interval history: Patient seen and examined. No new events overnight. Labs and nursing notes reviewed concerned about elevated BG and low INR Objective - Constitutional Vitals: Vital Signs - 12hr 06/21/17 06/21/17 06/21/17 04:12 08:36 10:54 Temperature 97.9 F 97.7 F Pulse Rate 76 101 H Respiratory 20 Rate Blood Pressure 140/85 154/95 O2 Sat by Pulse 93 Oximetry - Labs CBC & Chem 7: 06/18/17 17:23 06/18/17 17:23 Labs: Abnormal lab results 06/20/17 06/20/17 06/21/17 Range/Units 17:23 22:02 06:12 PT 15.8 H (12.2-14.9) Sec. INR 1.19 H (0.87-1.13) POC Glucose 242 H 257 H (70-105) 06/21/17 06/21/17 Range/Units 08:38 12:00 PT (12.2-14.9) Sec. INR (0.87-1.13) POC Glucose 287 H 310 H (70-105)
[2017-06-21] MEDS: COUMADIN PO SCH ×2 (16:54→16:55)
[2017-06-21] MEDS: NON-FORMULARY SUB-Q SCH (16:54)
[2017-06-21] MEDS: LEVEMIR SUB-Q SCH (22:29)
[2017-06-22 05:43] LABS: INR 1.4 (0.87-1.13)
[2017-06-22] MEDS: NON-FORMULARY SUB-Q SCH (10:35)
[2017-06-22] MEDS: LOVENOX SUB-Q SCH ×2 (10:35→22:08)
[2017-06-22] MEDS: TOPROL XL PO SCH (10:36)
[2017-06-22] MEDS: NOVOLOG SUB-Q SCH ×4 (10:36→22:25)
[2017-06-22] MEDS: ZESTRIL PO SCH (10:37)
[2017-06-22] MEDS: ZITHROMAX PO SCH (10:37)
[2017-06-22] MEDS: GLUCOTROL PO SCH ×2 (10:37→22:08)
--- NOTE | 2017-06-22 14:23 | Progress Note ---
Assessment and Plan // CVA (cerebral vascular accident) MRI Brain, MRA Brain, Echo, Carotid Doppler, PT/OT/ speech Therapy, antiplatelet therapy CT head No acute CVA, intracranial bleed, or brain mass MRI brain showed rt pontine cva, preserved EF on 2d echo Neurology consulted //Diabetes ADA diet, SSI insulin, accu check ACHS started on home dose of victoza A1c 15.7, will also cont on detemir 10 unit subcu will adjust medication as needed, BG now better //HTN (hypertension) monitor bp frequently //Pulmonary embolism Resumed home anticoagulation, therapeutic lovenox until INR therapeutic. //Hyperlipidemia Initiate statin therapy //DVT prophylaxis Lovenox d/c when INR therapeutic Brief History: 52 YO Female with HTN, DM, History of PE presents to ED for evaluation. Pt states that she was in her usual state of health at bedtime last night which was around 2100 hrs, but awoke this morning and experienced difficulty speaking , and also had a hard time formulating words and speaking full sentences. Patient brother stated that she had a facial droop. Pt states that symptoms improved after 15 minutes. Pt denies fever, chills, CP, Palpitations, Syncope, shortness of breath, productive cough, BRBPR, Vertigo, Seizures, loss of bowel/ bladder continence, trauma, or recent ill contacts. Pt seen and evaluated in ED and found to be outside therapeutic window for TPA. Pt admitted to telemetry with stroke protocol. Hospitalist Physical General appearance: Present: no acute distress, well-nourished - EENT Eyes: Present: PERRL, EOM intact ENT: hearing intact, clear oral mucosa - Neck Neck: Present: supple, normal ROM - Respiratory Respiratory effort: normal Respiratory: bilateral: CTA - Cardiovascular Rhythm: regular Heart Sounds: Present: S1 & S2 - Extremities Extremities: no ischemia, No edema - Abdominal General gastrointestinal: soft, non-tender, non-distended - Integumentary Integumentary: Present: clear, warm, dry - Psychiatric Psychiatric: appropriate mood/affect, intact judgment & insight - Neurologic Neurologic: CNII-XII intact, moves all extremities - Allied Health Allied health notes reviewed: nursing Subjective Date of service: 06/22/17 Interval history: Patient seen and examined. No new events overnight. Labs and nursing notes reviewed concerned about elevated BG and low INR wats to be seen by Dr. Escalera (her section chief) states that she was told that she has fluid around her heart, she wants to be seen by section chief Objective - Constitutional Vitals: Vital Signs - 12hr 06/22/17 06/22/17 06/22/17 03:59 07:50 10:00 Temperature 98.3 F 97.7 F Pulse Rate 87 Respiratory 18 18 20 Rate Blood Pressure 143/89 140/98 O2 Sat by Pulse 100 Oximetry 06/22/17 06/22/17 10:36 10:37 Temperature Pulse Rate Respiratory Rate Blood Pressure 140/98 140/98 O2 Sat by Pulse Oximetry - Labs CBC & Chem 7: 06/18/17 17:23 06/18/17 17:23 Labs: Abnormal lab results 06/21/17 06/21/17 06/22/17 Range/Units 16:18 22:05 05:04 PT 18.0 H (12.2-14.9) Sec. INR 1.40 H (0.87-1.13) POC Glucose 155 H 163 H (70-105) 06/22/17 06/22/17 Range/Units 07:56 12:00 PT (12.2-14.9) Sec. INR (0.87-1.13) POC Glucose 109 H 217 H (70-105)
[2017-06-22] MEDS: COUMADIN PO SCH ×2 (17:35)
[2017-06-22] MEDS ORDERED: BENADRYL PO PRN (17:52)
[2017-06-22] MEDS: LEVEMIR SUB-Q SCH (22:09)
[2017-06-23 07:34] LABS: BUN/Creatinine Ratio 19; Blood Urea Nitrogen 21 mg/dL (7-17); Calcium 8.6 mg/dL (8.4-10.2); Hemolysis Index 4
[2017-06-23 08:40] LABS: Basophils # (Auto) 0.1 K/mm3 (0.0-0.1); Basophils % (Auto) 0.8 % (0.0-1.8); Eosinophils # (Auto) 0.1 K/mm3 (0.0-0.4); Eosinophils % (Auto) 1.9 % (0.0-4.3); Hematocrit 37.4 % (30.3-42.9); Lymphocytes # (Auto) 3.5 K/mm3 (1.2-5.4); Lymphocytes % (Auto) 49.9 % (13.4-35.0); Mean Corpuscular HGB Conc 35 % (30-34); Mean Corpuscular Hemoglobin 29 pg (28-32); Mean Corpuscular Volume 84 fl (79-97); Monocytes # (Auto) 0.5 K/mm3 (0.0-0.8); Monocytes % (Auto) 7.5 % (0.0-7.3); Platelet Count 283 K/mm3 (140-440); Red Blood Count 4.45 M/mm3 (3.65-5.03); Red Cell Distribution Width 13.4 % (13.2-15.2)
[2017-06-23 08:50] LABS: INR 1.41 (0.87-1.13)
[2017-06-23] MEDS: NON-FORMULARY SUB-Q SCH (10:30)
[2017-06-23] MEDS: GLUCOTROL PO SCH ×2 (10:31→22:04)
[2017-06-23] MEDS: COZAAR PO SCH (10:31)
[2017-06-23] MEDS: TOPROL XL PO SCH (10:31)
[2017-06-23] MEDS: ZITHROMAX PO SCH (10:31)
[2017-06-23] MEDS: LOVENOX SUB-Q SCH ×2 (10:31→22:04)
[2017-06-23] MEDS: NOVOLOG SUB-Q SCH ×4 (10:37→23:13)
--- NOTE | 2017-06-23 11:01 | Progress Note ---
Subjective Date of service: 06/23/17 Principal diagnosis: Pontine Infarct Interval history: NEUROLOGY PROGRESS NOTE Hx reviewed in detail. Work up of Dr Shahida Miller reviewed. MRI brain shows NEUROLOGY FOLLOW UP NOTE Hx reviewed in detail. Dr. Shahida Miller's work up reviewed. MRI brain (images reviewed) shows Right pontine infarct. All studies completed. Carotid doppler shows only <50% carotid stenosis on both sides (see under Notes). EXAM: Pt alert, in good spirits. MS: normal. CN ii - 12 normal save for slight left facial droop and slightly slurred speech. MOT: near full strength in left arm and leg to resistence testing, save for left foot drop where there is no dorsiflexion at all at this point. CEREB: Coordination of left arm and leg are moderately impaired. GAIT: Patient can walk, circumducting her left leg. IMP: 1. Right Pontine infarct with left jacob-coordination deficit and mild motor deficit mainly in left foot dorsiflexors, secondary to uncontrolled HTN in the setting of DM2. RECC: 1. Neuro work up complete. Pt has been working with PT. OK to DC patient home from neuro point of view. 2. Discussed mechanism of stroke with patient + rule of thumb that whatever deficit she has after six months is likely to be the deficit she will have to learn to live with. I believe she will do well. Damon Vital MD Objective - Vital Sign Vital Signs - 12hr 06/22/17 23:04 Temperature 98.3 F Pulse Rate 86 Respiratory 18 Rate Blood Pressure 152/89 O2 Sat by Pulse 99 Oximetry - Laboratory Findings CBC and BMP: 06/23/17 04:00 06/23/17 04:00 Abnormal Lab Findings: Abnormal Labs 06/18/17 06/18/17 06/18/17 14:29 17:23 17:23 MCHC Lymph % (Auto) 41.7 H [place] % (Auto) Seg Neutrophils % PT INR APTT 24.1 L Sodium BUN Glucose POC Glucose 116 H Hemoglobin A1c Alkaline Phosphatase Triglycerides Cholesterol HDL Cholesterol 06/18/17 06/18/17 06/19/17 17:23 22:37 05:44 MCHC Lymph % (Auto) [place] % (Auto) Seg Neutrophils % PT INR APTT Sodium BUN 30 H Glucose POC Glucose Hemoglobin A1c 15.9 H Alkaline Phosphatase 132 H Triglycerides 602 H Cholesterol 243 H HDL Cholesterol 31 L 06/19/17 06/19/17 06/19/17 13:05 16:41 21:18 MCHC Lymph % (Auto) [place] % (Auto) Seg Neutrophils % PT INR APTT Sodium BUN Glucose POC Glucose 393 H 436 H 221 H Hemoglobin A1c Alkaline Phosphatase Triglycerides Cholesterol HDL Cholesterol 06/20/17 06/20/17 06/20/17 05:24 08:18 12:15 MCHC Lymph % (Auto) [place] % (Auto) Seg Neutrophils % PT INR APTT Sodium BUN Glucose POC Glucose 222 H 304 H 311 H Hemoglobin A1c Alkaline Phosphatase Triglycerides Cholesterol HDL Cholesterol 06/20/17 06/20/17 06/21/17 17:23 22:02 06:12 MCHC Lymph % (Auto) [place] % (Auto) Seg Neutrophils % PT 15.8 H INR 1.19 H APTT Sodium BUN Glucose POC Glucose 242 H 257 H Hemoglobin A1c Alkaline Phosphatase Triglycerides Cholesterol HDL Cholesterol 06/21/17 06/21/17 06/21/17 08:38 12:00 16:18 MCHC Lymph % (Auto) [place] % (Auto) Seg Neutrophils % PT INR APTT Sodium BUN Glucose POC Glucose 287 H 310 H 155 H Hemoglobin A1c Alkaline Phosphatase Triglycerides Cholesterol HDL Cholesterol 06/21/17 06/22/17 06/22/17 22:05 05:04 07:56 MCHC Lymph % (Auto) [place] % (Auto) Seg Neutrophils % PT 18.0 H INR 1.40 H APTT Sodium BUN Glucose POC Glucose 163 H 109 H Hemoglobin A1c Alkaline Phosphatase Triglycerides Cholesterol HDL Cholesterol 06/22/17 06/22/17 06/22/17 12:00 17:07 20:58 MCHC Lymph % (Auto) [place] % (Auto) Seg Neutrophils % PT INR APTT Sodium BUN Glucose POC Glucose 217 H 197 H 147 H Hemoglobin A1c Alkaline Phosphatase Triglycerides Cholesterol HDL Cholesterol 06/23/17 06/23/17 06/23/17 04:00 04:00 04:00 MCHC 35 H Lymph % (Auto) 49.9 H [place] % (Auto) 7.5 H Seg Neutrophils % 39.9 L PT 18.1 H INR 1.41 H APTT Sodium 136 L BUN 21 H Glucose 234 H POC Glucose Hemoglobin A1c Alkaline Phosphatase Triglycerides Cholesterol HDL Cholesterol 06/23/17 07:24 MCHC Lymph % (Auto) [place] % (Auto) Seg Neutrophils % PT INR APTT Sodium BUN Glucose POC Glucose 228 H Hemoglobin A1c Alkaline Phosphatase Triglycerides Cholesterol HDL Cholesterol
--- NOTE | 2017-06-23 13:12 | Consultation ---
History of Present Illness Consult date: 06/23/17 Consult reason: other (CVA) History of present illness: The patient stated 52-year-old woman who has a history of hypertension, presented on June 18 with acute CVA manifested by slurred speech, left hemiparesis. At the time of presentation her blood pressure was stable 140 systolic. 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 She was reportedly outside the TPA window, and has been managed conservatively. The patient is currently doing well, ambulating on the floor with the physical therapist. An echocardiogram reports an ejection fraction normal at 55-60%, but there was evidence of an atrial septal aneurysm, and an associated PFO on agitated contrast bubble study. The patient has been started on warfarin by the admitting medical service. EKG was normal sinus rhythm, left ventricle hypertrophy with nonspecific repolarization abnormalities. Past History Past Medical History: diabetes, hypertension, pulmonary embolism Past Surgical History: No surgical history Social history: , lives with family. denies: smoking, alcohol abuse, prescription drug abuse Family history: diabetes (parents had hypertension, one sister with diabetes and hypertension, son with juvenile RA.), hypertension Medications and Allergies Allergies Allergy/AdvReac Type Severity Reaction Status Date / Time No Known Allergies Allergy Unverified 06/17/17 16:49 Home Medications Medication Instructions Recorded Confirmed Last Taken Type Azithromycin [Zithromax] 250 mg PO DAILY 5 Days #6 tablet 06/17/17 06/18/17 Rx Liraglutide [Victoza 2-Bladimir] 0.6 mg SQ DAILY 06/18/17 06/18/17 Unknown History Lisinopril [Prinivil] 5 mg PO DAILY 06/18/17 06/18/17 Unknown History Metoprolol Succinate 50 mg PO DAILY 06/18/17 06/18/17 Unknown History NIFEdipine [Nifedipine ER] 60 mg PO QPM 06/18/17 06/18/17 Unknown History Valsartan/Hydrochlorothiazide 1 each PO BID 06/18/17 06/18/17 Unknown History [Valsartan-Hctz 160-12.5 mg Tab] Warfarin [Coumadin] 10 mg PO QHS 06/18/17 06/18/17 Unknown History glipiZIDE [Glipizide] 10 mg PO BID 06/18/17 06/18/17 Unknown History Active Meds: Active Medications Acetaminophen (Tylenol) 650 mg PO Q4H PRN PRN Reason: Pain, Mild (1-3) Last Admin: 06/20/17 21:24 Dose: 650 mg Albuterol (Proventil) 2.5 mg IH Q3HRT PRN PRN Reason: Shortness Of Breath Atorvastatin Calcium (Lipitor) 40 mg PO QHS [facility] Last Admin: 06/22/17 22:08 Dose: 40 mg Azithromycin (Zithromax) 250 mg PO DAILY [facility] Last Admin: 06/23/17 10:31 Dose: 250 mg Dextrose (D50w (25gm) Syringe) 50 ml IV PRN PRN PRN Reason: Hypoglycemia Diphenhydramine HCl (Benadryl) 25 mg PO QHS PRN PRN Reason: Sleep Last Admin: 06/22/17 22:14 Dose: 25 mg Enoxaparin Sodium (Lovenox) 80 mg SUB-Q Q12HR [facility] Last Admin: 06/22/17 22:08 Dose: 80 mg Glipizide (Glucotrol) 10 mg PO BID [facility] Last Admin: 06/23/17 10:31 Dose: 10 mg Hydralazine HCl (Apresoline) 5 mg IV Q6HR PRN PRN Reason: Hypertension Insulin Aspart (Novolog) 0 units SUB-Q [facility]; Protocol Last Admin: 06/23/17 10:37 Dose: 2 units Insulin Detemir (Levemir) 10 units SUB-Q QHS [facility] Last Admin: 06/22/17 22:09 Dose: 10 units Losartan Potassium (Cozaar) 25 mg PO QDAY [facility] Last Admin: 06/23/17 10:31 Dose: 25 mg Metoprolol Succinate (Toprol Xl) 50 mg PO DAILY [facility] Last Admin: 06/23/17 10:31 Dose: 50 mg Miscellaneous Medication (Non-Formulary) 1 each SUB-Q DAILY [facility] Last Admin: 06/23/17 10:30 Dose: 1 each Ondansetron HCl (Zofran) 4 mg IV Q8H PRN PRN Reason: N/V unrelieved by Reglan Sodium Chloride (Sodium Chloride Flush Syringe 10 Ml) 10 ml IV PRN PRN PRN Reason: LINE FLUSH Review of Systems Cardiovascular: no chest pain, no orthopnea, no palpitations, no rapid/ irregular heart beat, no edema, no syncope, no lightheadedness, no shortness of breath Physical Examination Vital Signs Temp Pulse Resp BP Pulse Ox 98.1 F 100 H 16 140/91 99 06/18/17 14:22 06/18/17 14:22 06/18/17 14:22 06/18/17 14:22 06/18/17 14:22 General appearance: no acute distress HEENT: Positive: PERRL Neck: Positive: neck supple Cardiac: Positive: Reg Rate and Rhythm Lungs: Positive: clear to auscultation Neuro: Positive: Weakness (left sided hemiparesis) Abdomen: Positive: Soft Female genitourinary: deferred Skin: Positive: Clear Extremities: Absent: edema Results 06/23/17 04:00 06/23/17 04:00 Coagulation 06/23/17 Range/Units 04:00 PT 18.1 H (12.2-14.9) Sec. INR 1.41 H (0.87-1.13) CBC 06/23/17 Range/Units 04:00 WBC 7.1 (4.5-11.0) K/mm3 RBC 4.45 (3.65-5.03) M/mm3 Hgb 13.0 (10.1-14.3) gm/dl Hct 37.4 (30.3-42.9) % Plt Count 283 (140-440) K/mm3 Lymph # 3.5 (1.2-5.4) K/mm3 Drew # 0.5 (0.0-0.8) K/mm3 Eos # 0.1 (0.0-0.4) K/mm3 Baso # 0.1 (0.0-0.1) K/mm3 Comprehensive Metabolic Panel 06/23/17 Range/Units 04:00 Sodium 136 L (137-145) mmol/L Potassium 4.0 (3.6-5.0) mmol/L Chloride 100.7 (98-107) mmol/L Carbon Dioxide 23 (22-30) mmol/L BUN 21 H (7-17) mg/dL Creatinine 1.1 (0.7-1.2) mg/dL Glucose 234 H (65-100) mg/dL Calcium 8.6 (8.4-10.2) mg/dL EKG interpretations - Telemetry EKG Rhythm: Sinus Rhythm Assessment and Plan - Patient Problems (1) CVA (cerebral vascular accident) Current Visit: Yes Status: Suspected Qualifiers: CVA mechanism: unspecified Qualified Code(s): I63.9 - Cerebral infarction, unspecified Plan to address problem: The patient was admitted with a left CEA, manifested by slurred speech, facial droop and left hemiparesis. On echocardiogram there is normal left ventricular function but evidence of an atrial septal aneurysm and a patent foramen ovale. Recommendations: Ultimately, the patient will benefit from consideration for percutaneous clamshell closure of the PFO. We will get a ELINA for further assessment of the atrial septum.
[2017-06-23] MEDS ORDERED: COUMADIN PO SCH (17:00)
[2017-06-23] MEDS: COUMADIN PO SCH (17:00)
--- NOTE | 2017-06-23 17:50 | Progress Note ---
Assessment and Plan - Patient Problems (1) Hypertension Current Visit: Yes Status: Acute Plan to address problem: Hypertension came be more aggressively control her blood pressure. Stable now continue beta cathy for pontine infarction. (2) CVA (cerebral vascular accident) Current Visit: Yes Status: Suspected Qualifiers: CVA mechanism: unspecified Qualified Code(s): I63.9 - Cerebral infarction, unspecified Plan to address problem: Acute CVA patient's slurred speech and hemiparesis has resolved still has foot drop. Patient placed on anticoagulation with Coumadin. Was found on echocardiogram to have PFO. Scheduled for ELINA in a.m. for further evaluation. Subjective Date of service: 06/23/17 Principal diagnosis: Pontine Infarct Interval history: Patient currently doing much better cannot even see facial droop now. Patient did get up and walk around. Left arm was almost complete range of motion patient still has left foot drop. Still has some paresthesia. Objective - Constitutional Vitals: Vital Signs - 12hr 06/23/17 10:00 Pulse Rate 89 Respiratory 18 Rate General appearance: Present: no acute distress, well-nourished - EENT Eyes: PERRL, EOM intact ENT: hearing intact, clear oral mucosa Ears: bilateral: normal - Neck Neck: supple, normal ROM - Respiratory Respiratory effort: normal Respiratory: bilateral: CTA - Breasts Breasts: normal - Cardiovascular Rhythm: regular Heart Sounds: Present: S1 & S2. Absent: gallop, rub Extremities: pulses intact, No edema, normal color, Full ROM - Gastrointestinal General gastrointestinal: Present: soft, non-tender, non-distended, normal bowel sounds - Genitourinary Female genitourinary: normal - Integumentary Integumentary: clear, warm, dry - Musculoskeletal Musculoskeletal: 1, strength equal bilaterally - Neurologic Neurologic: moves all extremities, other (left foot drop and paresthesias left hand. Resolving facial droop.) - Psychiatric Psychiatric: memory intact, appropriate mood/affect, intact judgment & insight - Labs CBC & Chem 7: 06/23/17 04:00 06/23/17 04:00 Labs: Abnormal lab results 06/22/17 06/22/17 06/23/17 Range/Units 17:07 20:58 04:00 MCHC (30-34) % Lymph % (Auto) (13.4-35.0) % Dyer % (Auto) (0.0-7.3) % Seg Neutrophils % (40.0-70.0) % PT 18.1 H (12.2-14.9) Sec. INR 1.41 H (0.87-1.13) Sodium (137-145) mmol/L BUN (7-17) mg/dL Glucose (65-100) mg/dL POC Glucose 197 H 147 H (70-105) 06/23/17 06/23/17 06/23/17 Range/Units 04:00 04:00 07:24 MCHC 35 H (30-34) % Lymph % (Auto) 49.9 H (13.4-35.0) % Dyer % (Auto) 7.5 H (0.0-7.3) % Seg Neutrophils % 39.9 L (40.0-70.0) % PT (12.2-14.9) Sec. INR (0.87-1.13) Sodium 136 L (137-145) mmol/L BUN 21 H (7-17) mg/dL Glucose 234 H (65-100) mg/dL POC Glucose 228 H (70-105) 06/23/17 06/23/17 Range/Units 12:12 17:09 MCHC (30-34) % Lymph % (Auto) (13.4-35.0) % Dyer % (Auto) (0.0-7.3) % Seg Neutrophils % (40.0-70.0) % PT (12.2-14.9) Sec. INR (0.87-1.13) Sodium (137-145) mmol/L BUN (7-17) mg/dL Glucose (65-100) mg/dL POC Glucose 252 H 143 H (70-105)
[2017-06-23] MEDS: APRESOLINE IV PRN (22:05)
[2017-06-23] MEDS: TYLENOL PO PRN (22:07)
[2017-06-23] MEDS: LEVEMIR SUB-Q SCH (23:11)
[2017-06-24] MEDS: APRESOLINE IV PRN (04:09)
[2017-06-24 06:07] LABS: INR 1.58 (0.87-1.13)
[2017-06-24] MEDS: NOVOLOG SUB-Q SCH ×3 (07:30→17:26)
[2017-06-24] MEDS ORDERED: DECADRON ONE (08:15)
[2017-06-24] MEDS ORDERED: NEO SYNEPHRINE/NS Syringe(OR USE) IV ONE (08:15)
[2017-06-24] MEDS ORDERED: AMIDATE IV ONE (08:15)
[2017-06-24] MEDS ORDERED: ZOFRAN ONE ×2 (08:15→09:10)
[2017-06-24] MEDS ORDERED: VERSED ONE (08:15)
[2017-06-24] MEDS ORDERED: DIPRIVAN 10 MG/ML IV ONE (08:15)
[2017-06-24] MEDS ORDERED: XYLOCAINE MPF 0.5% INFILTRATI ONE (08:15)
[2017-06-24] MEDS ORDERED: ePHEDrine SULFATE ONE (08:16)
[2017-06-24] MEDS ORDERED: DILAUDID ONE (08:17)
--- NOTE | 2017-06-24 08:55 | Progress Note ---
Subjective Date of service: 06/24/17 Principal diagnosis: Pontine Infarct Objective - Constitutional Vitals: Vital Signs - 12hr 06/23/17 06/23/17 06/23/17 21:16 22:00 22:05 Temperature 98.9 F Temperature [ Pre-Procedure] Pulse Rate 87 85 86 Pulse Rate [Pre -Procedure] Pulse Rate [ 84 Radial] Respiratory 16 18 Rate Respiratory Rate [Pre- Procedure] Blood Pressure 162/87 168/106 Blood Pressure [Pre-Procedure] O2 Sat by Pulse 98 96 Oximetry O2 Sat by Pulse Oximetry [Pre- Procedure] 06/23/17 06/23/17 06/24/17 22:07 23:07 01:04 Temperature 98.6 F Temperature [ Pre-Procedure] Pulse Rate 83 Pulse Rate [Pre -Procedure] Pulse Rate [ Radial] Respiratory 17 17 18 Rate Respiratory Rate [Pre- Procedure] Blood Pressure 154/92 Blood Pressure [Pre-Procedure] O2 Sat by Pulse 99 Oximetry O2 Sat by Pulse Oximetry [Pre- Procedure] 06/24/17 06/24/17 06/24/17 03:47 04:09 08:39 Temperature 98.5 F Temperature [ 97.6 F Pre-Procedure] Pulse Rate 82 86 Pulse Rate [Pre 97 H -Procedure] Pulse Rate [ Radial] Respiratory 18 Rate Respiratory 18 Rate [Pre- Procedure] Blood Pressure 169/95 169/95 Blood Pressure 181/103 [Pre-Procedure] O2 Sat by Pulse 100 Oximetry O2 Sat by Pulse 100 Oximetry [Pre- Procedure] - Labs CBC & Chem 7: 06/23/17 04:00 06/23/17 04:00 Labs: Abnormal lab results 06/23/17 06/23/17 06/23/17 Range/Units 12:12 17:09 22:56 PT (12.2-14.9) Sec. INR (0.87-1.13) POC Glucose 252 H 143 H 175 H (70-105) 06/24/17 Range/Units 05:27 PT 19.8 H (12.2-14.9) Sec. INR 1.58 H (0.87-1.13) POC Glucose (70-105)
[2017-06-24] MEDS ORDERED: NACL 0.9% 500 ML 500 ML IV SCH (09:00)
[2017-06-24] MEDS ORDERED: HURRICAINE ONE 20% TOPICAL SPRAY MM NR (09:00)
--- NOTE | 2017-06-24 10:01 | Progress Note ---
Assessment and Plan Acute pontine infarct ? embolic vs thrombotic PFO on ELINA but no evidence of ASA Uncontrolled systemic hypertension Type II DM DVT on warfarin therapy Recommendations: Continue warfarin therapy for DVT In the presence of uncontrolled hypertension and type II DM, it is difficult to be certain that her stroke is embolic in origin and not thrombotic We will need the help and input of neurology prior to committing patient to device closure of her PFO Follow-up with primary social sciences chair as outpatient Subjective Date of service: 06/24/17 Principal diagnosis: Pontine Infarct Interval history: Patient underwent a ELINA today without complications Objective Vital Signs Temp Temp Temp Pulse Pulse Pulse Pulse 06/24/17 09:20 94 H 06/24/17 09:05 99 H 06/24/17 08:49 97.7 F 96 H 06/24/17 08:39 97.6 F 97 H 06/24/17 04:09 86 06/24/17 03:47 98.5 F 82 06/24/17 01:04 98.6 F 83 06/23/17 23:07 06/23/17 22:07 06/23/17 22:05 86 06/23/17 22:00 85 84 06/23/17 21:16 98.9 F 87 06/23/17 16:40 98.1 F 82 06/23/17 10:00 89 Resp Resp Resp BP BP BP Pulse Ox 06/24/17 09:20 152/86 06/24/17 09:05 140/87 06/24/17 08:49 27 H 147/88 06/24/17 08:39 18 181/103 06/24/17 04:09 169/95 06/24/17 03:47 18 169/95 100 06/24/17 01:04 18 154/92 99 06/23/17 23:07 17 06/23/17 22:07 17 06/23/17 22:05 168/106 06/23/17 22:00 18 96 06/23/17 21:16 16 162/87 98 06/23/17 16:40 18 132/92 100 06/23/17 10:00 18 Pulse Ox Pulse Ox 06/24/17 09:20 100 06/24/17 09:05 100 06/24/17 08:49 100 06/24/17 08:39 100 06/24/17 04:09 06/24/17 03:47 06/24/17 01:04 06/23/17 23:07 06/23/17 22:07 06/23/17 22:05 06/23/17 22:00 06/23/17 21:16 06/23/17 16:40 06/23/17 10:00 - Physical Examination HEENT: Positive: PERRL Neck: Positive: neck supple Cardiac: Positive: Reg Rate and Rhythm Lungs: Positive: Normal Exam Neuro: Positive: Weakness (left sided hemiparesis) Abdomen: Positive: Soft Skin: Positive: Clear Extremities: Absent: edema - Labs and Meds Coagulation 06/24/17 Range/Units 05:27 PT 19.8 H (12.2-14.9) Sec. INR 1.58 H (0.87-1.13)
[2017-06-24] MEDS: LOVENOX SUB-Q SCH (10:24)
[2017-06-24] MEDS: ZITHROMAX PO SCH (10:30)
[2017-06-24] MEDS: NON-FORMULARY SUB-Q SCH (10:30)
[2017-06-24] MEDS: TOPROL XL PO SCH (10:30)
[2017-06-24] MEDS: GLUCOTROL PO SCH (10:30)
[2017-06-24] MEDS: COZAAR PO SCH (10:30)
--- NOTE | 2017-06-24 15:09 | Discharge Summary ---
Providers - Providers Date of Admission: 06/18/17 18:20 Date of discharge: 06/24/17 Attending physician: DARIUS HERRING 06/18/17 18:20 Occupational Therapy Evaluate and Treat [CONS] Routine Comment: Reason For Exam: Neuro deficits Physical Therapy Evaluation and Treat [CONS] Routine Comment: Reason For Exam: Neuro deficits 06/18/17 18:21 Speech Therapy Evaluation and Treat [CONS] Routine Reason For Exam: swallow eval 06/19/17 09:31 Consult to Physician [CONS] Routine Consulting Provider: DEONNA MENDEZ Reason For Exam: CVA Place consult to:: neuro Notified:: yes Comment:: added to list 06/22/17 14:19 Consult to Physician [CONS] Routine Consulting Provider: ENDER LEDEZMA Reason For Exam: patient's request(pt od dr LEDEZMA) Place consult to:: Dr Ledezma Notified:: Y Comment:: ADDED TO LIST Primary care physician: GUT CARRIER Hospitalization Reason for admission: Acute ischemic stroke Condition: Stable Pertinent studies: MRI/MRA - showed acute right pointing infarction Procedures: none Hospital course: 52 YO Female with HTN, DM, History of PE presents to ED for evaluation. Pt states that she was in her usual state of health at bedtime last night which was around 2100 hrs, but awoke this morning and experienced difficulty speaking , and also had a hard time formulating words and speaking full sentences. Patient brother stated that she had a facial droop. Pt states that symptoms improved after 15 minutes. Pt denies fever, chills, CP, Palpitations, Syncope, shortness of breath, productive cough, BRBPR, Vertigo, Seizures, loss of bowel/ bladder continence, trauma, or recent ill contacts. Pt seen and evaluated in ED and found to be outside therapeutic window for TPA. Pt admitted to telemetry and treated in accordnace with stoke protocol stroke protocol, commencing pt on ASA, Statibn, PT/OT/SY evakl and treatment as well as antiocoagulation. Carotic doppler showd no signioficanrt stenosis. ELINA and TTE wer unramrgalcr exceprt joseluis patent foramen over which pt has been aware of. P abulating with left sided weakness . she is therefore being discharged today to f/u with PCP in 3-5 days and out pt Physical therapy Disposition: DC- TO HOME OR SELFCARE Time spent for discharge: 33 mins Core Measure Documentation - Palliative Care Palliative Care/ Comfort Measures: Not Applicable - Core Measures Any of the following diagnoses?: stroke Exam - Constitutional Vitals: Temp Pulse Resp BP Pulse Ox 97.7 F 94 H 27 H 152/86 100 06/24/17 08:49 06/24/17 09:20 06/24/17 08:49 06/24/17 09:20 06/24/17 09:20 General appearance: Present: no acute distress, well-nourished - EENT Eyes: Present: PERRL - Neck Neck: Present: supple, normal ROM - Respiratory Respiratory effort: normal Respiratory: bilateral: CTA - Cardiovascular Heart Sounds: Present: S1 & S2. Absent: rub, click - Extremities Extremities: pulses symmetrical, No edema Peripheral Pulses: within normal limits - Abdominal General gastrointestinal: Present: soft, non-tender, non-distended, normal bowel sounds Female genitourinary: Present: normal - Integumentary Integumentary: Present: clear, warm, dry - Musculoskeletal Musculoskeletal: gait normal, strength equal bilaterally - Psychiatric Psychiatric: appropriate mood/affect, intact judgment & insight - Neurologic Neurologic: CNII-XII intact, moves all extremities Plan Activity: advance as tolerated, fall precautions Weight Bearing Status: Non-Weight Bearing Diet: low cholesterol, low salt, diabetic Follow up with: PRIMARY CARE, [Primary Care Provider] - 3-5 Days Forms: Warfarin Discharge Instruction Prescriptions: ALBUTEROL NEB's [Proventil 0.083% NEBS] 2.5 mg IH Q3HRT PRN #100 nebu PRN Reason: Shortness Of Breath AtorvaSTATin [Lipitor] 40 mg PO QHS #30 tablet Azithromycin [Zithromax] 250 mg PO DAILY 5 Days #6 tablet Insulin Detemir [Levemir] 10 units SUB-Q QHS #300 units Liraglutide [Victoza 2-Bladimir] 0.6 mg SQ DAILY #1 pen.injctr Losartan [Cozaar] 25 mg PO QDAY #30 tablet Metoprolol Succinate 50 mg PO DAILY #30 tab.er.24h NIFEdipine [Nifedipine ER] 60 mg PO QPM #30 tab.er.24 Valsartan/Hydrochlorothiazide [Valsartan-Hctz 160-12.5 mg Tab] 1 each PO BID # 30 tablet Warfarin [Coumadin] 10 mg PO QHS #30 tablet
[2017-06-24] MEDS: COUMADIN PO SCH (17:27)
[2017-06-24 18:56] VITALS: BP 150/91
== END 2017-06-24 18:45 | disposition home or self-care (01) | DRG 65 ==
LOC: ED 14:18 → 4A 18:20
PROVIDERS: ADMIT Internal Medicine; ATTEND Family Medicine
DX: I63.9 Cerebral infarction, unspecified (principal); I69.354 Hemiplegia and hemiparesis following cerebral infarction affecting left non-dominant side; E78.5 Hyperlipidemia, unspecified; I10 Essential (primary) hypertension; R49.0 Dysphonia; E11.9 Type 2 diabetes mellitus without complications; Z86.711 Personal history of pulmonary embolism; Z79.01 Long term (current) use of anticoagulants; Z87.891 Personal history of nicotine dependence; Z82.49 Family history of ischemic heart disease and other diseases of the circulatory system; Z79.899 Other long term (current) drug therapy; Z79.2 Long term (current) use of antibiotics; Z83.3 Family history of diabetes mellitus
CPT/HCPCS: 36415; 70450; 70544; 70551; 80048; 80053; 80061; 80307; 82550; 82553; 82607; 82962; 83036; 84439; 84443; 84484; 85025; 85610; 85670; 85730; 93005; 93010; 93306; 93312; 93320; 93325; 93880; A9270-GY; J0360; J1100; J1170; J1650; J1815; J1818; J2250; J2370; J2405; J2704; J7040

== ENCOUNTER 2018-06-23 12:55 | Emergency (ER) | payer BC ==
--- NOTE | 2018-06-23 13:23 | Emergency Department Report ---
Blank Doc - Documentation Documentation: Here for CP and elevated Blood pressure. Feels she is under stress. No SOb Pain radiates to left arm. Med compliance. Followed by Dr. Núñez. This initial assessment diagnostic orders/clinical plan/treatment (s) is/Are subject change based on patient's health status, clinical progression and re- assessment by fellow clinical providers in the ED. Further treatment and work-up at subsequent clinical providers discretion. Patient/guardians urged not to elope from s their condition may be serious if not clinically assessed and managed. Inital order include: CP Protocol
[2018-06-23 13:52] LABS: Basophils % (Auto) 0.2 % (0.0-1.8); Eosinophils % (Auto) 10.8 % (0.0-4.3); Hematocrit 37.7 % (30.3-42.9); Hemoglobin 12.9 gm/dl (10.1-14.3); Lymphocytes # (Auto) 3.4 K/mm3 (1.2-5.4); Mean Corpuscular HGB Conc 34 % (30-34); Mean Corpuscular Volume 84 fl (79-97); Monocytes # (Auto) 0.7 K/mm3 (0.0-0.8); Monocytes % (Auto) 7.7 % (0.0-7.3); Platelet Count 352 K/mm3 (140-440); Red Blood Count 4.48 M/mm3 (3.65-5.03); Red Cell Distribution Width 13.5 % (13.2-15.2)
[2018-06-23 14:16] LABS: Alanine Aminotransferase 41 units/L (7-56); BUN/Creatinine Ratio 11; Blood Urea Nitrogen 16 mg/dL (7-17); Calcium 9.7 mg/dL (8.4-10.2); Hemolysis Index 17
--- NOTE | 2018-06-23 14:21 | XRay Report ---
ROUTINE CHEST, TWO VIEWS: HISTORY: chest pain. The trachea, heart, mediastinal contour, lung mcdonnell and bony thorax are unremarkable. IMPRESSION: Unremarkable chest x-ray.
[2018-06-23 14:37] LABS: Bilirubin,Urine NEG (Negative); Blood,Urine NEG (Negative); Color,Urine Yellow (Yellow); Mucus,Urine FEW /HPF
--- NOTE | 2018-06-23 16:19 | Emergency Department Report ---
ED Chest Pain HPI - General Chief Complaint: Chest Pain Stated Complaint: CHEST PAIN/HBP Time Seen by Provider: 06/23/18 13:17 Source: patient Mode of arrival: Ambulatory Limitations: No Limitations - History of Present Illness Initial Comments: Patient is a 53-year-old female who is presenting with chest pain. Patient states this is sharp pain and occurred while she was in a meeting at work. Patient states she has been rather stressed lately. Patient does have a history of high blood pressure has been compliant with her meds however blood pressure was elevated today. Patient denies any shortness of breath diaphoresis or nausea vomiting. Patient does states she's had some stomach rolling lately and thought she was coming down with a virus. Patient states she's had some increase flatulence and belching. Patient states the chest discomfort is improved. Patient states the she also has had some left shoulder and arm pain for some weeks that is worse with movement and is not associated necessarily with the chest pain she had today. Severity scale (0 -10): 5 - Related Data Previous Rx's Medication Instructions Recorded Last Taken Type ALBUTEROL NEB's [Proventil 0.083% 2.5 mg IH Q3HRT PRN #100 nebu 06/24/17 Unknown Rx NEBS] AtorvaSTATin [Lipitor] 40 mg PO QHS #30 tablet 06/24/17 Unknown Rx Azithromycin [Zithromax] 250 mg PO DAILY 5 Days #6 tablet 06/24/17 Unknown Rx Detemir (Nf) [Levemir (Nf)] 10 units SUB-Q QHS #300 units 06/24/17 Unknown Rx Liraglutide [Victoza 2-Bladimir] 0.6 mg SQ DAILY #1 pen.injctr 06/24/17 Unknown Rx Losartan [Cozaar] 25 mg PO QDAY #30 tablet 06/24/17 Unknown Rx Metoprolol Succinate 50 mg PO DAILY #30 tab.er.24h 06/24/17 Unknown Rx NIFEdipine [Nifedipine ER] 60 mg PO QPM #30 tab.er.24 06/24/17 Unknown Rx Valsartan/Hydrochlorothiazide 1 each PO BID #30 tablet 06/24/17 Unknown Rx [Valsartan-Hctz 160-12.5 mg Tab] Warfarin [Coumadin] 10 mg PO QHS #30 tablet 06/24/17 Unknown Rx Allergies Allergy/AdvReac Type Severity Reaction Status Date / Time No Known Allergies Allergy Verified 06/23/18 12:57 Heart Score - HEART Score History: Slightly suspicious EKG: Normal Age: 45-65 Risk factors: 1-2 risk factors Troponin: < normal limit HEART Score: 2 ED Review of Systems ROS: Stated complaint: CHEST PAIN/HBP Other details as noted in HPI Comment: All other systems reviewed and negative ED Past Medical Hx - Past Medical History Hx Hypertension: Yes Hx CVA: Yes (left side weakness) Hx Congestive Heart Failure: No Hx Diabetes: Yes Hx Pulmonary Embolism: Yes Hx Asthma: Yes Hx COPD: No Additional medical history: PE (still takes Coumadin) - Surgical History Past Surgical History?: No - Social History Smoking Status: Never Smoker Substance Use Type: None - Medications Home Medications: Home Medications Medication Instructions Recorded Confirmed Last Taken Type ALBUTEROL NEB's [Proventil 0.083% 2.5 mg IH Q3HRT PRN #100 nebu 06/24/17 Unknown Rx NEBS] AtorvaSTATin [Lipitor] 40 mg PO QHS #30 tablet 06/24/17 Unknown Rx Azithromycin [Zithromax] 250 mg PO DAILY 5 Days #6 tablet 06/24/17 Unknown Rx Detemir (Nf) [Levemir (Nf)] 10 units SUB-Q QHS #300 units 06/24/17 Unknown Rx Liraglutide [Victoza 2-Bladimir] 0.6 mg SQ DAILY #1 pen.injctr 06/24/17 Unknown Rx Losartan [Cozaar] 25 mg PO QDAY #30 tablet 06/24/17 Unknown Rx Metoprolol Succinate 50 mg PO DAILY #30 tab.er.24h 06/24/17 Unknown Rx NIFEdipine [Nifedipine ER] 60 mg PO QPM #30 tab.er.24 06/24/17 Unknown Rx Valsartan/Hydrochlorothiazide 1 each PO BID #30 tablet 06/24/17 Unknown Rx [Valsartan-Hctz 160-12.5 mg Tab] Warfarin [Coumadin] 10 mg PO QHS #30 tablet 06/24/17 Unknown Rx ED Physical Exam - General Limitations: No Limitations General appearance: alert, in no apparent distress - Head Head exam: Present: atraumatic, normocephalic - Eye Eye exam: Present: normal appearance, PERRL, EOMI - ENT ENT exam: Present: mucous membranes moist - Neck Neck exam: Present: normal inspection - Respiratory Respiratory exam: Present: normal lung sounds bilaterally. Absent: respiratory distress, wheezes, rales, rhonchi - Cardiovascular Cardiovascular Exam: Present: regular rate, normal rhythm, normal heart sounds. Absent: systolic murmur, diastolic murmur, rubs, gallop - GI/Abdominal GI/Abdominal exam: Present: soft, normal bowel sounds. Absent: distended, tenderness, guarding, rebound - Extremities Exam Extremities exam: Present: normal inspection - Back Exam Back exam: Present: normal inspection - Neurological Exam Neurological exam: Present: alert, oriented X3 - Psychiatric Psychiatric exam: Present: normal affect, normal mood - Skin Skin exam: Present: warm, dry, intact, normal color. Absent: rash ED Course Vital Signs 06/23/18 06/23/18 13:17 13:50 Temperature 98.5 F Pulse Rate 100 H Respiratory 18 16 Rate Blood Pressure 185/106 O2 Sat by Pulse 100 Oximetry ED Medical Decision Making - Lab Data Result diagrams: 06/23/18 13:40 06/23/18 13:40 Lab Results 06/23/18 06/23/18 06/23/18 Range/Units 13:40 13:40 13:40 WBC 9.6 (4.5-11.0) K/mm3 RBC 4.48 (3.65-5.03) M/mm3 Hgb 12.9 (10.1-14.3) gm/dl Hct 37.7 (30.3-42.9) % MCV 84 (79-97) fl MCH 29 (28-32) pg MCHC 34 (30-34) % RDW 13.5 (13.2-15.2) % Plt Count 352 (140-440) K/mm3 Lymph % (Auto) 36.0 H (13.4-35.0) % [place] % (Auto) 7.7 H (0.0-7.3) % Eos % (Auto) 10.8 H (0.0-4.3) % Baso % (Auto) 0.2 (0.0-1.8) % Lymph # 3.4 (1.2-5.4) K/mm3 [place] # 0.7 (0.0-0.8) K/mm3 Eos # 1.0 H (0.0-0.4) K/mm3 Baso # 0.0 (0.0-0.1) K/mm3 Seg Neutrophils % 45.3 (40.0-70.0) % Seg Neutrophils # 4.3 (1.8-7.7) K/mm3 PT 13.8 (12.2-14.9) Sec. INR 1.00 (0.87-1.13) Sodium 139 (137-145) mmol/L Potassium 3.8 (3.6-5.0) mmol/L Chloride 98.3 (98-107) mmol/L Carbon Dioxide 28 (22-30) mmol/L Anion Gap 17 mmol/L BUN 16 (7-17) mg/dL Creatinine 1.4 H (0.7-1.2) mg/dL Estimated GFR 48 ml/min BUN/Creatinine Ratio 11 % Glucose 167 H (65-100) mg/dL Calcium 9.7 (8.4-10.2) mg/dL Total Bilirubin 0.20 (0.1-1.2) mg/dL AST 37 (5-40) units/L ALT 41 (7-56) units/L Alkaline Phosphatase 129 (35-129) units/L Troponin T < 0.010 (0.00-0.029) ng/mL Total Protein 8.1 (6.3-8.2) g/dL Albumin 4.0 (3.9-5) g/dL Albumin/Globulin Ratio 1.0 % Urine Color (Yellow) Urine Turbidity (Clear) Urine pH (5.0-7.0) Ur Specific [place] (1.003-1.030) Urine Protein (Negative) mg/dL Urine Glucose (UA) (Negative) mg/dL Urine Ketones (Negative) mg/dL Urine Blood (Negative) Urine Nitrite (Negative) Urine Bilirubin (Negative) Urine Urobilinogen (<2.0) mg/dL Ur Leukocyte Esterase (Negative) Urine WBC (Auto) (0.0-6.0) /HPF Urine RBC (Auto) (0.0-6.0) /HPF U Epithel Cells (Auto) (0-13.0) /HPF Urine Mucus /HPF 06/23/18 Range/Units 14:22 WBC (4.5-11.0) K/mm3 RBC (3.65-5.03) M/mm3 Hgb (10.1-14.3) gm/dl Hct (30.3-42.9) % MCV (79-97) fl MCH (28-32) pg MCHC (30-34) % RDW (13.2-15.2) % Plt Count (140-440) K/mm3 Lymph % (Auto) (13.4-35.0) % [place] % (Auto) (0.0-7.3) % Eos % (Auto) (0.0-4.3) % Baso % (Auto) (0.0-1.8) % Lymph # (1.2-5.4) K/mm3 [place] # (0.0-0.8) K/mm3 Eos # (0.0-0.4) K/mm3 Baso # (0.0-0.1) K/mm3 Seg Neutrophils % (40.0-70.0) % Seg Neutrophils # (1.8-7.7) K/mm3 PT (12.2-14.9) Sec. INR (0.87-1.13) Sodium (137-145) mmol/L Potassium (3.6-5.0) mmol/L Chloride (98-107) mmol/L Carbon Dioxide (22-30) mmol/L Anion Gap mmol/L BUN (7-17) mg/dL Creatinine (0.7-1.2) mg/dL Estimated GFR ml/min BUN/Creatinine Ratio % Glucose (65-100) mg/dL Calcium (8.4-10.2) mg/dL Total Bilirubin (0.1-1.2) mg/dL AST (5-40) units/L ALT (7-56) units/L Alkaline Phosphatase (35-129) units/L Troponin T (0.00-0.029) ng/mL Total Protein (6.3-8.2) g/dL Albumin (3.9-5) g/dL Albumin/Globulin Ratio % Urine Color Yellow (Yellow) Urine Turbidity Slightly-cloudy (Clear) Urine pH 5.0 (5.0-7.0) Ur Specific [place] 1.025 (1.003-1.030) Urine Protein 100 mg/dl (Negative) mg/dL Urine Glucose (UA) Neg (Negative) mg/dL Urine Ketones Neg (Negative) mg/dL Urine Blood Neg (Negative) Urine Nitrite Neg (Negative) Urine Bilirubin Neg (Negative) Urine Urobilinogen 2.0 (<2.0) mg/dL Ur Leukocyte Esterase Tr (Negative) Urine WBC (Auto) 4.0 (0.0-6.0) /HPF Urine RBC (Auto) 4.0 (0.0-6.0) /HPF U Epithel Cells (Auto) 8.0 (0-13.0) /HPF Urine Mucus Few /HPF Second troponin is normal as well. - EKG Data -: EKG Interpreted by Or EKG shows normal: sinus rhythm, axis, intervals, QRS complexes, ST-T waves Rate: normal - EKG Data Interpretation: normal EKG - Radiology Data [facility] [address] [place] [address] XRay Report Signed Patient: PRIYA SILVA MR#: [id number] : 1965 Acct:[id number] Age/Sex: 53 / F ADM Date: 06/23/18 Loc: ED Attending Dr: Ordering Physician: ASIYA BORJAS Date of Service: 06/23/18 Procedure(s): XR chest routine 2V Accession Number(s): [id number] cc: ASIYA BORJAS Fluoro Time In Minutes: ROUTINE CHEST, TWO VIEWS: HISTORY: chest pain. The trachea, heart, mediastinal contour, lung mcdonnell and bony thorax are unremarkable. IMPRESSION: Unremarkable chest x-ray. Transcribed By: TTR Dictated By: BRIAN GRADY JR, MD Electronically Authenticated By: BRIAN GRADY JR, MD Signed Date/Time: 06/23/181416 DD/ 16 TD/TT: 06/23/181416 - Medical Decision Making Patient's chest pain is completely resolved while she's been here in the emergency department as she's had 2 negative troponin. Patient states she is adamant that her pain was secondary to stress and is requested "a week off from work. They she'll be given tomorrow off. 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 Patient states she has a blood pressure medicines at home and will restart taking them. Critical care attestation.: If time is entered above; I have spent that time in minutes in the direct care of this critically ill patient, excluding procedure time. ED Disposition Clinical Impression: Atypical chest pain, Stress reaction, Hypertensive urgency Disposition: DC-01 TO HOME OR SELFCARE Is pt being admited?: No Does the pt Need Aspirin: No Condition: Stable Instructions: Chest Pain (ED), Stress (ED) Referrals: VINNIE LYNN MD [Primary Care Provider] - 3-5 Days Time of Disposition: 17:13
[2018-06-23 17:47] VITALS: BP 176/94
== END 2018-06-23 17:47 | disposition home or self-care (01) ==
LOC: ED 12:55
DX: R07.89 Other chest pain (principal); I16.0 Hypertensive urgency; F43.9 Reaction to severe stress, unspecified; I10 Essential (primary) hypertension; E11.9 Type 2 diabetes mellitus without complications; J45.909 Unspecified asthma, uncomplicated; Z86.711 Personal history of pulmonary embolism; Z79.01 Long term (current) use of anticoagulants
CPT/HCPCS: 36415; 71046; 80053; 81001; 84484; 85025; 85610; 93005; 93010; 99284